=== PATIENT | female | born 1955 | race Caucasian/White ===

== ENCOUNTER 2019-02-13 20:34 | Observation (INO) | payer OTHER ==
[2019-02-13] MEDS ORDERED: Ondansetron 4 MG/2 ML SDV IVPUSH ONE (20:48)
[2019-02-13] MEDS ORDERED: Sodium Chloride 0.9% 10 ML Syringe FLUSH PRN (20:48)
[2019-02-13] MEDS ORDERED: HYDROmorphone 0.5 MG/0.5 ML Syringe IVPUSH ONE ×2 (20:49→22:04)
[2019-02-13] MEDS ORDERED: Pantoprazole 40 MG Vial IVPUSH ONE (20:50)
--- NOTE | 2019-02-13 20:56 | EDM.PDOC ---
ED HPI GENERAL MEDICAL PROBLEM - General Chief Complaint: Chest Pain Stated Complaint: chest pain Time Seen by Provider: 02/13/19 20:41 Source of Information: Reports: Patient History Limitations: Reports: No Limitations - History of Present Illness INITIAL COMMENTS - FREE TEXT/NARRATIVE: The patient presents with lower chest pain and upper abdominal pain. This started about 2 hours ago. She has a history of some issues with her gallbladder and upper abdomen. She was seen at [facility] last year and then transferred to [place]. Further work up looked good and she was discharged. This started after eating a few hours ago. She has no fever, chills, or cough. She has some shortness of breath. She has no nausea or vomiting. She has no dysuria or hematuria. She has no cardiac history. Onset: Gradual Duration: Hour(s): Location: Reports: Chest, Abdomen Quality: Reports: Sharp Severity: Moderate Improves with: Reports: None Worsens with: Reports: None Associated Symptoms: Reports: Chest Pain, Shortness of Breath. Denies: Cough, Fever/Chills, Headaches, Nausea/Vomiting Bilateral Chest Pain Score (Numeric/FACES): 8 - Related Data Allergies Allergy/AdvReac Type Severity Reaction Status Date / Time No Known Allergies Allergy Verified 02/13/19 20:38 Home Meds: Home Meds . [No Known Home Meds] 02/13/19 [History] Past Medical History HEENT History: Reports: Impaired Vision Other HEENT History: Wears glasses Gastrointestinal History: Reports: Diverticulosis Musculoskeletal History: Reports: Fracture Hematologic History: Reports: Other (See Below) Other Hematologic History: Factor - Past Surgical History HEENT Surgical History: Reports: Tonsillectomy GI Surgical History: Reports: Appendectomy Female Surgical History: Reports: Tubal Ligation Social & Family History - Tobacco Use Smoking Status *Q: Never Smoker - Recreational Drug Use Recreational Drug Use: No ED ROS GENERAL - Review of Systems Review Of Systems: See Below Constitutional: Reports: No Symptoms HEENT: Reports: No Symptoms Respiratory: Reports: No Symptoms Cardiovascular: Reports: No Symptoms Endocrine: Reports: No Symptoms GI/Abdominal: Reports: Abdominal Pain. Denies: Diarrhea, Nausea, Vomiting : Reports: No Symptoms Musculoskeletal: Reports: No Symptoms Skin: Reports: No Symptoms Neurological: Reports: No Symptoms ED EXAM, GENERAL - Physical Exam Exam: See Below Exam Limited By: No Limitations General Appearance: Alert, No Apparent Distress Ears: Normal External Exam Nose: Normal Inspection Head: Atraumatic, Normocephalic Neck: Normal Inspection Respiratory/Chest: No Respiratory Distress, Lungs Clear, Normal Breath Sounds Cardiovascular: Regular Rate, Rhythm, No Edema, No Murmur GI/Abdominal: Soft, No Organomegaly, No Mass, Tender (Moderate tenderness to the RUQ) Extremities: Normal Inspection EKG INTERPRETATION EKG Date: 02/13/19 Time: 09:01 Rhythm: NSR Rate (Beats/Min): 72 [place]: Normal P-Wave: Present QRS: Normal ST-T: Normal QT: Normal Course - Vital Signs Last Recorded V/S: Last Vital Signs Temp 97.4 F 02/13/19 20:38 Pulse 83 02/13/19 20:38 Resp 13 02/13/19 20:38 BP 140/78 02/13/19 20:38 Pulse Ox 100 02/13/19 20:38 - Orders/Labs/Meds Orders: Active Orders 24 hr Category Date Time Status Cardiac Monitoring [RC] . DIRECTED Care 02/13/19 20:48 Active EKG Documentation Completion [RC] STAT Care 02/13/19 20:49 Active Influenza Vaccine Charge [RC] .DISCHARGE Care 02/13/19 20:42 Active Peripheral IV Care [RC] . DIRECTED Care 02/13/19 20:49 Active Abdomen Ltd [US] Stat Exams 02/13/19 20:50 Taken Chest 1V Frontal [CR] Stat Exams 02/13/19 20:49 Taken Sodium Chloride 0.9% [Normal Saline] 1,000 ml Med 02/13/19 21:00 Active IV ASDIRECTED Sodium Chloride 0.9% [Saline Flush] Med 02/13/19 20:48 Active 10 ml FLUSH ASDIRECTED PRN ED Antiemetic Medication Reflex [OM.PC] Stat Oth 02/13/19 20:48 Ordered Peripheral IV Insertion Adult [OM.PC] Stat Oth 02/13/19 20:48 Ordered Medication Orders Sodium Chloride (Normal Saline) 1,000 mls @ 125 mls/hr IV ASDIRECTED GONZALO Last Admin: 02/13/19 21:08 Dose: 125 mls/hr Sodium Chloride (Saline Flush) 10 ml FLUSH ASDIRECTED PRN PRN Reason: Keep Vein Open Last Admin: 02/13/19 21:08 Dose: 10 ml Labs: Laboratory Tests 02/13/19 02/13/19 02/13/19 Range/Units 20:45 20:45 20:45 WBC 6.46 (3.98-10.04) K/mm3 RBC 4.11 (3.98-5.22) M/mm3 Hgb 12.8 (11.2-15.7) gm/dl Hct 38.8 (34.1-44.9) % MCV 94.4 (79.4-94.8) fl MCH 31.1 (25.6-32.2) pg MCHC 33.0 (32.2-35.5) g/dl RDW Std Deviation 44.0 (36.4-46.3) fL Plt Count 308 (182-369) K/mm3 MPV 9.3 L (9.4-12.3) fl Neut % (Auto) 53.2 (34.0-71.1) % Lymph % (Auto) 34.2 (19.3-51.7) % [place] % (Auto) 10.8 (4.7-12.5) % Eos % (Auto) 1.4 (0.7-5.8) Baso % (Auto) 0.2 (0.1-1.2) % Neut # (Auto) 3.44 (1.56-6.13) K/mm3 Lymph # (Auto) 2.21 (1.18-3.74) K/mm3 [place] # (Auto) 0.70 H (0.24-0.36) K/mm3 Eos # (Auto) 0.09 (0.04-0.36) K/mm3 Baso # (Auto) 0.01 (0.01-0.08) K/mm3 D-Dimer, Quantitative 0.33 (0.19-0.50) mg/L Sodium 142 (136-145) mEq/L Potassium 4.0 (3.5-5.1) mEq/L Chloride 105 (98-107) mEq/L Carbon Dioxide 30 (21-32) mEq/L Anion Gap 11.0 (5-15) BUN 23 H (7-18) mg/dL Creatinine 1.2 H (0.55-1.02) mg/dL Est Cr Clr Drug Dosing 40.36 mL/min Estimated GFR (MDRD) 45 (>60) mL/min BUN/Creatinine Ratio 19.2 H (14-18) Glucose 109 (80-115) mg/dL Calcium 9.5 (8.5-10.1) mg/dL Total Bilirubin 0.2 (0.2-1.0) mg/dL AST 21 (15-37) U/L ALT 17 (14-59) U/L Alkaline Phosphatase 86 (46-116) U/L Troponin I < 0.017 (0.00-0.056) ng/mL C-Reactive Protein < 0.2 (<1.0) mg/dL Total Protein 7.4 (6.4-8.2) g/dl Albumin 4.0 (3.4-5.0) g/dl Globulin 3.4 gm/dL Albumin/Globulin Ratio 1.2 (1-2) Lipase 305 (73-393) U/L Meds: Medications Generic Name Dose Route Start Last Admin Trade Name Freq PRN Reason Stop Dose Admin Sodium Chloride 1,000 mls @ 125 mls/hr 02/13/19 21:00 02/13/19 21:08 Normal Saline IV 125 mls/hr ASDIRECTED GONZALO Administration Sodium Chloride 10 ml 02/13/19 20:48 02/13/19 21:08 Saline Flush FLUSH 10 ml ASDIRECTED PRN Administration Keep Vein Open Discontinued Medications Generic Name Dose Route Start Last Admin Trade Name Freq PRN Reason Stop Dose Admin Hydromorphone HCl 0.5 mg 02/13/19 20:49 02/13/19 21:10 Dilaudid IVPUSH 02/13/19 20:50 0.5 mg ONETIME ONE Administration Hydromorphone HCl 0.5 mg 02/13/19 22:04 02/13/19 22:19 Dilaudid IVPUSH 02/13/19 22:05 0.5 mg ONETIME ONE Administration Influenza Virus Vaccine 1 each 02/13/19 20:42 Pharmacy To Dose - Influenza Vaccine IM 02/13/19 20:43 ONETIME ONE Influenza Virus Vaccine 180 mcg 02/13/19 20:45 02/13/19 21:13 Fluzone High-Dose 2019-20 Syringe IM 02/13/19 20:46 180 mcg .ONCE ONE Administration Ondansetron HCl 4 mg 02/13/19 20:48 02/13/19 21:09 Zofran IVPUSH 02/13/19 20:49 4 mg ONETIME ONE Administration Pantoprazole Sodium 40 mg 02/13/19 20:50 02/13/19 21:11 Protonix Iv IVPUSH 02/13/19 20:51 40 mg ONETIME ONE Administration - Re-Assessments/Exams Free Text/Narrative Re-Assessment/Exam: 02/13/19 20:55 I ordered an IV NS bolus, EKG, CXR, labs, UA, US of her gallbladder, dilaudid 0.5mg IV, zofran 4mg IV, and protonix 40mg IV. 02/13/19 23:25 Her EKG shows a NSR with no acute changes. Her CXR looks good. Her CBC looks good. Her creatinine is a little elevated at 1.2. Her total bili, AST, ALT and alk phos all were normal. Her troponin was negative. Her lipase was normal. Her US shows a distended gallbladder with stones. There is a non-mobile stone in the neck and the patient does have tenderness over the gallbladder. Nonspecific irregularity to the gallbladder wall could be small polyps or adenomyomatosis. She needed another dose of dilaudid. Her pain is better. I feel she may need to have this gallbladder out soon. I called Dr Rainey our general surgeon functional support analyst and he wanted her observation and he will see her tomorrow to have the gallbladder out sometime tomorrow. I will do some bridging orders. Departure - Departure Time of Disposition: 23:30 Disposition: Refer to Observation Condition: Fair Clinical Impression: Biliary colic Cholelithiasis Qualifiers: Cholelithiasis location: gallbladder Cholecystitis presence: without cholecystitis Biliary obstruction: with biliary obstruction Qualified Code(s): K80.21 - Calculus of gallbladder without cholecystitis with obstruction Referrals: Amanda Jimenes MD [Primary Care Provider] - Forms: ED Department Discharge - My Orders Last 24 Hours: My Active Orders 02/13/19 20:42 Influenza Vaccine Charge [RC] .DISCHARGE 02/13/19 20:48 Cardiac Monitoring [RC] . DIRECTED Sodium Chloride 0.9% [Saline Flush] 10 ml FLUSH ASDIRECTED PRN ED Antiemetic Medication Reflex [OM.PC] Stat Peripheral IV Insertion Adult [OM.PC] Stat 02/13/19 20:49 EKG Documentation Completion [RC] STAT Peripheral IV Care [RC] . DIRECTED Chest 1V Frontal [CR] Stat 02/13/19 20:50 Abdomen Ltd [US] Stat 02/13/19 21:00 Sodium Chloride 0.9% [Normal Saline] 1,000 ml IV ASDIRECTED - Assessment/Plan Last 24 Hours: My Active Orders 02/13/19 20:42 Influenza Vaccine Charge [RC] .DISCHARGE 02/13/19 20:48 Cardiac Monitoring [RC] . DIRECTED Sodium Chloride 0.9% [Saline Flush] 10 ml FLUSH ASDIRECTED PRN ED Antiemetic Medication Reflex [OM.PC] Stat Peripheral IV Insertion Adult [OM.PC] Stat 02/13/19 20:49 EKG Documentation Completion [RC] STAT Peripheral IV Care [RC] . DIRECTED Chest 1V Frontal [CR] Stat 02/13/19 20:50 Abdomen Ltd [US] Stat 02/13/19 21:00 Sodium Chloride 0.9% [Normal Saline] 1,000 ml IV ASDIRECTED
[2019-02-13] MEDS ORDERED: Sodium Chloride 0.9% 1,000 ML IV SCH (21:00)
[2019-02-13] MEDS: Piperacillin/Tazobactam 4.5 GM in Sodium Chloride 0.9% 100 ML IV SCH (23:38)
[2019-02-14] MEDS: HYDROmorphone 0.5 MG/0.5 ML Syringe IVPUSH PRN ×4 (00:25→09:19)
[2019-02-14] MEDS ORDERED: Ondansetron 4 MG/2 ML SDV IVPUSH PRN ×2 (00:40→13:24)
[2019-02-14] MEDS ORDERED: Sodium Chloride 0.9% 1,000 ML IV SCH (00:45)
[2019-02-14] MEDS: Piperacillin/Tazobactam 4.5 GM in Sodium Chloride 0.9% 100 ML IV SCH ×2 (06:30→17:34)
--- NOTE | 2019-02-14 07:35 | PCM.CONS ---
H&P History of Present Illness - General Date of Service: 02/14/19 Admit Problem/Dx: Admission Diagnosis/Problem Admission Diagnosis/Problem Cholelithiasis Source of Information: Patient History Limitations: Reports: No Limitations - History of Present Illness Onset of Symptoms: Reports: Unknown/Unsure Duration of Symptoms: Reports: Hour(s): Location: Reports: Abdomen Quality: Reports: Stabbing Severity: Severe Improves with: Reports: Medication Worsens with: Reports: Eating Associated Symptoms: Reports: No Other Symptoms Bilateral Chest Pain Score (Numeric/FACES): 8 - Related Data Allergies/Adverse Reactions: Allergies Allergy/AdvReac Type Severity Reaction Status Date / Time No Known Allergies Allergy Verified 02/14/19 00:48 Home Medications: Home Meds Zolpidem Tartrate [Ambien] 5 mg PO BEDTIME 02/13/19 [History] Past Medical History HEENT History: Reports: Impaired Vision Other HEENT History: Wears glasses Gastrointestinal History: Reports: Diverticulosis PIANO MOVER History: Reports: Other OB/BYN History: tubes tied Musculoskeletal History: Reports: Arthritis, Fracture Hematologic History: Reports: Other (See Below) Other Hematologic History: Factor 5 Leiden deficiency- reports its only one gene - Past Surgical History HEENT Surgical History: Reports: Tonsillectomy, Other (See Below) Other HEENT Surgeries/Procedures: cosmetic eye surgery GI Surgical History: Reports: Appendectomy Female Surgical History: Reports: Tubal Ligation Social & Family History - Family History Family Medical History: Noncontributory - Tobacco Use Smoking Status *Q: Never Smoker Second Hand Smoke Exposure: No - Caffeine Use Caffeine Use: Reports: Coffee Other Caffeine Use: 2-3cups/day - Recreational Drug Use Recreational Drug Use: No H&P Review of Systems - Review of Systems: Review Of Systems: See Below General: Reports: Malaise HEENT: Reports: No Symptoms Pulmonary: Reports: No Symptoms Cardiovascular: Reports: No Symptoms Gastrointestinal: Reports: Abdominal Pain, Nausea Genitourinary: Reports: No Symptoms Musculoskeletal: Reports: No Symptoms Skin: Reports: No Symptoms Psychiatric: Reports: No Symptoms Neurological: Reports: No Symptoms Hematologic/Lymphatic: Reports: No Symptoms Immunologic: Reports: No Symptoms Exam - Exam Exam: See Below - Vital Signs Vital Signs: Last Vital Signs Temp 36.3 C 02/13/19 20:38 Pulse 83 02/13/19 20:38 Resp 13 02/13/19 20:38 BP 140/78 02/13/19 20:38 Pulse Ox 100 02/13/19 20:38 Weight: 66.27 kg - Exam General: Alert, Oriented HEENT: Conjunctiva Clear Neck: Supple, Trachea Midline Lungs: Clear to Auscultation Cardiovascular: Regular Rate GI/Abdominal Exam: Soft, No Organomegaly (Female) Exam: Deferred Rectal (Female) Exam: Deferred Back Exam: Normal Inspection Extremities: Normal Inspection Peripheral Pulses: 2+: Radial (L), Radial (R) Skin: Warm, Dry Neurological: Normal Gait Neuro Extensive - Mental Status: Alert, Oriented x3 Neuro Extensive - Motor, Sensory, Reflexes: Normal Gait Psychiatric: Alert, Normal Affect, Normal Mood - Patient Data Lab Results Last 24 hrs: Laboratory Results - last 24 hr 02/13/19 02/13/19 02/13/19 Range/Units 20:45 20:45 20:45 WBC 6.46 (3.98-10.04) K/mm3 RBC 4.11 (3.98-5.22) M/mm3 Hgb 12.8 (11.2-15.7) gm/dl Hct 38.8 (34.1-44.9) % MCV 94.4 (79.4-94.8) fl MCH 31.1 (25.6-32.2) pg MCHC 33.0 (32.2-35.5) g/dl RDW Std Deviation 44.0 (36.4-46.3) fL Plt Count 308 (182-369) K/mm3 MPV 9.3 L (9.4-12.3) fl Neut % (Auto) 53.2 (34.0-71.1) % Lymph % (Auto) 34.2 (19.3-51.7) % [place] % (Auto) 10.8 (4.7-12.5) % Eos % (Auto) 1.4 (0.7-5.8) Baso % (Auto) 0.2 (0.1-1.2) % Neut # (Auto) 3.44 (1.56-6.13) K/mm3 Lymph # (Auto) 2.21 (1.18-3.74) K/mm3 [place] # (Auto) 0.70 H (0.24-0.36) K/mm3 Eos # (Auto) 0.09 (0.04-0.36) K/mm3 Baso # (Auto) 0.01 (0.01-0.08) K/mm3 D-Dimer, Quantitative 0.33 (0.19-0.50) mg/L Sodium 142 (136-145) mEq/L Potassium 4.0 (3.5-5.1) mEq/L Chloride 105 (98-107) mEq/L Carbon Dioxide 30 (21-32) mEq/L Anion Gap 11.0 (5-15) BUN 23 H (7-18) mg/dL Creatinine 1.2 H (0.55-1.02) mg/dL Est Cr Clr Drug Dosing 40.36 mL/min Estimated GFR (MDRD) 45 (>60) mL/min BUN/Creatinine Ratio 19.2 H (14-18) Glucose 109 (80-115) mg/dL Calcium 9.5 (8.5-10.1) mg/dL Total Bilirubin 0.2 (0.2-1.0) mg/dL AST 21 (15-37) U/L ALT 17 (14-59) U/L Alkaline Phosphatase 86 (46-116) U/L Troponin I < 0.017 (0.00-0.056) ng/mL C-Reactive Protein < 0.2 (<1.0) mg/dL Total Protein 7.4 (6.4-8.2) g/dl Albumin 4.0 (3.4-5.0) g/dl Globulin 3.4 gm/dL Albumin/Globulin Ratio 1.2 (1-2) Lipase 305 (73-393) U/L Result Diagrams: 02/13/19 20:45 02/13/19 20:45 Consult PN Assessment/Plan Procedures: Procedures POLYSOM 6/> YRS 4/> ARLIN (09/24/14) (1) Cholelithiasis SNOMED Code(s): 988035594 Code(s): K80.20 - CALCULUS OF GALLBLADDER W/O CHOLECYSTITIS W/O OBSTRUCTION Current Visit: Yes Qualifiers: Cholelithiasis location: gallbladder Cholecystitis presence: with cholecystitis Cholecystitis acuity: acute Biliary obstruction: without biliary obstruction Qualified Code(s): K80.00 - Calculus of gallbladder with acute cholecystitis without obstruction Problem List Initiated/Reviewed/Updated: Yes My Orders Last 24 Hours: My Active Orders 02/14/19 00:17 HYDROmorphone [Dilaudid] 0.5 mg IVPUSH Q2H PRN 02/14/19 00:38 Bedrest Bathroom Privileges [RC] ASDIRECTED 02/14/19 00:39 Resuscitation Status Routine 02/14/19 00:40 Ondansetron [Zofran] 4 mg IVPUSH Q6HR PRN 02/14/19 00:45 Sodium Chloride 0.9% [Normal Saline] 1,000 ml IV ASDIRECTED 02/14/19 06:16 Schedule Procedure [COMM] Routine 02/14/19 07:27 Schedule Procedure [COMM] Routine 02/14/19 Breakfast NPO [Nothing Per Oral Diet] [DIET] Plan: laparoscopic cholecystectomy Requesting Provider: royce Alcocer Consult Requested: 02/13/19 Reason for Consult: gallstone disease Patient History Reviewed: Yes Admission H&P Reviewed: Yes Consult Result/Summary:: acute cholecystitis, plan for laparoscopic cholecystectomy Notified Requestor: Yes Time Spent (in minutes): 30
--- NOTE | 2019-02-14 08:19 | CR ---
Chest: Frontal view of the chest was obtained. Comparison: No prior chest x-ray. Heart size and mediastinum are normal. Lungs are clear with no acute parenchymal change. Bony structures are grossly intact. Impression: 1. Nothing acute is seen on frontal chest x-ray. Diagnostic code #1
--- NOTE | 2019-02-14 08:19 | US ---
Limited abdominal ultrasound: Multiple real-time images were obtained of the upper right abdomen. Liver contains no focal abnormality. Multiple gallstones are seen within the gallbladder. Gallbladder wall shows irregular thickening suggesting adenomyomatosis. No pericholecystic fluid is seen. No biliary duct dilatation is seen. Visualized portions of the pancreas show no discrete abnormality. Right kidney shows no hydronephrosis or mass. Right kidney length is 10.6 cm. Impression: 1. Multiple gallstones. Probable adenomyomatosis within the gallbladder wall. No pericholecystic fluid or biliary duct dilatation is seen. 2. Other portions of the right upper quadrant abdominal ultrasound show no discrete abnormality. Diagnostic code #3 I agree with preliminary report from [facility], finalized on 02/14/19, 12:05 AM Central Time
[2019-02-14] MEDS: Heparin Sodium 5,000 Units/ML Vial SUBCUT SCH ×2 (08:58→17:32)
[2019-02-14] MEDS ORDERED: Scopolamine 1.5 MG Transdermal Patch TOP ONE (08:58)
--- NOTE | 2019-02-14 09:03 | PCM.PREANE ---
Preanesthetic Assessment - Anesthesia/Transfusion/Family Hx Anesthesia History: Prior Anesthesia Without Reaction Family History of Anesthesia Reaction: No Transfusion History: No Prior Transfusion(s) - Review of Systems General: Fatigue Pulmonary: No Symptoms Cardiovascular: No Symptoms Gastrointestinal: Abdominal Pain, Nausea (Improved with dilaudid and zofran. ) Neurological: No Symptoms Other: Reports: None (Factor V Leiden) - Physical Assessment NPO Status Date: 02/13/19 NPO Status Time: 18:30 Vital Signs: Last Vital Signs Temp 36.9 C 02/14/19 08:17 Pulse 64 02/14/19 08:17 Resp 20 02/14/19 08:17 BP 117/67 02/14/19 08:17 Pulse Ox 95 02/14/19 08:17 Height: 1.63 m Weight: 66.27 kg ASA Class: 2 Mental Status: Other Dentition: Reports: Normal Dentition Thyro-Mental Finger Breadths: 2 Mouth Opening Finger Breadths: 3 ROM/Head Extension: Full Lungs: Clear to Auscultation, Normal Respiratory Effort Cardiovascular: Regular Rate, Regular Rhythm - Lab Values: Laboratory Last Values WBC 6.46 K/mm3 (3.98-10.04) 02/13/19 20:45 RBC 4.11 M/mm3 (3.98-5.22) 02/13/19 20:45 Hgb 12.8 gm/dl (11.2-15.7) 02/13/19 20:45 Hct 38.8 % (34.1-44.9) 02/13/19 20:45 MCV 94.4 fl (79.4-94.8) 02/13/19 20:45 MCH 31.1 pg (25.6-32.2) 02/13/19 20:45 MCHC 33.0 g/dl (32.2-35.5) 02/13/19 20:45 RDW Std Deviation 44.0 fL (36.4-46.3) 02/13/19 20:45 Plt Count 308 K/mm3 (182-369) 02/13/19 20:45 MPV 9.3 fl (9.4-12.3) L 02/13/19 20:45 Neut % (Auto) 53.2 % (34.0-71.1) 02/13/19 20:45 Lymph % (Auto) 34.2 % (19.3-51.7) 02/13/19 20:45 [place] % (Auto) 10.8 % (4.7-12.5) 02/13/19 20:45 Eos % (Auto) 1.4 (0.7-5.8) 02/13/19 20:45 Baso % (Auto) 0.2 % (0.1-1.2) 02/13/19 20:45 Neut # (Auto) 3.44 K/mm3 (1.56-6.13) 02/13/19 20:45 Lymph # (Auto) 2.21 K/mm3 (1.18-3.74) 02/13/19 20:45 [place] # (Auto) 0.70 K/mm3 (0.24-0.36) H 02/13/19 20:45 Eos # (Auto) 0.09 K/mm3 (0.04-0.36) 02/13/19 20:45 Baso # (Auto) 0.01 K/mm3 (0.01-0.08) 02/13/19 20:45 D-Dimer, Quantitative 0.33 mg/L (0.19-0.50) 02/13/19 20:45 Sodium 142 mEq/L (136-145) 02/13/19 20:45 Potassium 4.0 mEq/L (3.5-5.1) 02/13/19 20:45 Chloride 105 mEq/L (98-107) 02/13/19 20:45 Carbon Dioxide 30 mEq/L (21-32) 02/13/19 20:45 Anion Gap 11.0 (5-15) 02/13/19 20:45 BUN 23 mg/dL (7-18) H 02/13/19 20:45 Creatinine 1.2 mg/dL (0.55-1.02) H 02/13/19 20:45 Est Cr Clr Drug Dosing 40.36 mL/min 02/13/19 20:45 Estimated GFR (MDRD) 45 mL/min (>60) 02/13/19 20:45 BUN/Creatinine Ratio 19.2 (14-18) H 02/13/19 20:45 Glucose 109 mg/dL (80-115) 02/13/19 20:45 Calcium 9.5 mg/dL (8.5-10.1) 02/13/19 20:45 Total Bilirubin 0.2 mg/dL (0.2-1.0) 02/13/19 20:45 AST 21 U/L (15-37) 02/13/19 20:45 ALT 17 U/L (14-59) 02/13/19 20:45 Alkaline Phosphatase 86 U/L (46-116) 02/13/19 20:45 Troponin I < 0.017 ng/mL (0.00-0.056) 02/13/19 20:45 C-Reactive Protein < 0.2 mg/dL (<1.0) 02/13/19 20:45 Total Protein 7.4 g/dl (6.4-8.2) 02/13/19 20:45 Albumin 4.0 g/dl (3.4-5.0) 02/13/19 20:45 Globulin 3.4 gm/dL 02/13/19 20:45 Albumin/Globulin Ratio 1.2 (1-2) 02/13/19 20:45 Lipase 305 U/L (73-393) 02/13/19 20:45 - Allergies Allergies/Adverse Reactions: Allergies Allergy/AdvReac Type Severity Reaction Status Date / Time No Known Allergies Allergy Verified 02/14/19 00:48 - Anesthesia Plan Pre-Op Medication Ordered: Other (Heparin per Dr. Rainey, Scopalamine Patch. ) - Acknowledgements Anesthesia Type Planned: General Anesthesia Pt an Appropriate Candidate for the Planned Anesthesia: Yes Alternatives and Risks of Anesthesia Discussed w Pt/Guardian: Yes Pt/Guardian Understands and Agrees with Anesthesia Plan: Yes PreAnesthesia Questionnaire HEENT History: Reports: Impaired Vision Other HEENT History: Wears glasses Gastrointestinal History: Reports: Diverticulosis LOGISTICS MANAGER History: Reports: Other OB/BYN History: tubes tied Musculoskeletal History: Reports: Arthritis, Fracture Hematologic History: Reports: Other (See Below) Other Hematologic History: Factor 5 Leiden deficiency- reports its only one gene - Past Surgical History HEENT Surgical History: Reports: Tonsillectomy, Other (See Below) Other HEENT Surgeries/Procedures: cosmetic eye surgery GI Surgical History: Reports: Appendectomy Female Surgical History: Reports: Tubal Ligation - SUBSTANCE USE Smoking Status *Q: Never Smoker Second Hand Smoke Exposure: No Recreational Drug Use History: No - HOME MEDS Home Medications: Home Meds Zolpidem Tartrate [Ambien] 5 mg PO BEDTIME 02/13/19 [History] - CURRENT (IN HOUSE) MEDS Current Meds: Current Medications Heparin Sodium (Porcine) (Heparin Sodium) 5,000 units SUBCUT Q8H [facility] Last Admin: 02/14/19 08:58 Dose: 5,000 units Hydromorphone HCl (Dilaudid) 0.5 mg IVPUSH Q2H PRN PRN Reason: Pain Last Admin: 02/14/19 06:25 Dose: 0.5 mg Piperacillin Sod/Tazobactam (Sod 4.5 gm/ Sodium Chloride) 100 mls @ 25 mls/hr IV Q8H GONZALO Last Admin: 02/14/19 06:30 Dose: 25 mls/hr Sodium Chloride (Normal Saline) 1,000 mls @ 100 mls/hr IV ASDIRECTED GONZALO Last Admin: 02/14/19 06:26 Dose: 100 mls/hr Ondansetron HCl (Zofran) 4 mg IVPUSH Q6HR PRN PRN Reason: Nausea Last Admin: 02/14/19 06:25 Dose: 4 mg Scopolamine (Transderm-Scop) 1.5 mg TOP ONETIME ONE Stop: 02/14/19 08:59 Sodium Chloride (Saline Flush) 10 ml FLUSH ASDIRECTED PRN PRN Reason: Keep Vein Open Last Admin: 02/13/19 21:08 Dose: 10 ml Discontinued Medications Hydromorphone HCl (Dilaudid) 0.5 mg IVPUSH ONETIME ONE Stop: 02/13/19 20:50 Last Admin: 02/13/19 21:10 Dose: 0.5 mg Hydromorphone HCl (Dilaudid) 0.5 mg IVPUSH ONETIME ONE Stop: 02/13/19 22:05 Last Admin: 02/13/19 22:19 Dose: 0.5 mg Sodium Chloride (Normal Saline) 1,000 mls @ 125 mls/hr IV ASDIRECTED [facility] Last Infusion: 02/14/19 00:05 Dose: 100 mls/hr Influenza Virus Vaccine (Pharmacy To Dose - Influenza Vaccine) 1 each IM ONETIME ONE Stop: 02/13/19 20:43 Influenza Virus Vaccine (Fluzone High-Dose Syringe) 180 mcg IM .ONCE ONE Stop: 02/13/19 20:46 Last Admin: 02/13/19 21:13 Dose: 180 mcg Ondansetron HCl (Zofran) 4 mg IVPUSH ONETIME ONE Stop: 02/13/19 20:49 Last Admin: 02/13/19 21:09 Dose: 4 mg Pantoprazole Sodium (Protonix Iv) 40 mg IVPUSH ONETIME ONE Stop: 02/13/19 20:51 Last Admin: 02/13/19 21:11 Dose: 40 mg
[2019-02-14] MEDS ORDERED: Ondansetron 4 MG/2 ML SDV ONE (12:27)
[2019-02-14] MEDS ORDERED: Rocuronium 50 MG/5 ML Vial ONE (12:27)
[2019-02-14] MEDS ORDERED: fentaNYL 250 MCG/5 ML SDV ONE (12:28)
[2019-02-14] MEDS ORDERED: Lidocaine 1% 4 ML ONE (12:28)
[2019-02-14] MEDS ORDERED: Midazolam 1 MG/ML 2 ML SDV ONE (12:28)
[2019-02-14] MEDS ORDERED: Propofol 200 MG/20 ML SDV ONE (12:28)
[2019-02-14] MEDS ORDERED: Bupivacaine 0.5%/EPINEPHrine 1:200,000 50 ML MDV ONE (12:43)
[2019-02-14] MEDS ORDERED: Lactated Ringers 1,000 ML ONE ×2 (12:55→14:25)
[2019-02-14] MEDS ORDERED: fentaNYL 100 MCG/2 ML SDV IVPUSH PRN (13:24)
[2019-02-14] MEDS ORDERED: HYDROmorphone 0.5 MG/0.5 ML Syringe IVPUSH PRN (13:24)
[2019-02-14] MEDS ORDERED: ePHEDrine/Normal Saline 25 MG/5 ML Syringe ONE (13:26)
[2019-02-14] MEDS ORDERED: Dexamethasone 4 MG/ML 5 ML MDV ONE (13:36)
[2019-02-14] MEDS ORDERED: fentaNYL 100 MCG/2 ML SDV ONE (14:11)
[2019-02-14] MEDS ORDERED: Neostigmine Methylsulfate 1 MG/ML 5 ML Syringe ONE (14:31)
--- NOTE | 2019-02-14 15:15 | PCM.PRNOTE ---
- Free Text/Narrative Note: Operative Report Operation: laparoscopic cholecystectomy Date: 02/14/2019 Attending Surgeon: Jacob Rainey MD Indication for Surgery:acute cholecystitis Preoperative antibiotics: zosyn VTE prophylaxis: Heparin 5000 u SC, SCDs Estimated Blood Loss: 100 cc Operation: laparoscopic lysis of adhesions, cholecystectomy Findings: extensive perihepatic gossamer adhesions extending to the dome of the liver. The gallbladder was chronically inflamed and edematous. The duodenum was adherent to the gallbladder. Gallbladder had large cystic duct, and contained clear viscous, non-bilious fluid and large whitish gallstones. Dissection was difficult. Detailed Report: The patient underwent general endotracheal anesthesia after being placed supine on the operating table and initial timeout. The abdomen was prepped and draped in sterile fashion. A pre-incision timeout was performed confirming the patient s identity and the operation to be performed. A Veress needle was inserted into the abdominal cavity below the left costal margin along the mid-clavicular line. The abdomen was insufflated with CO2 to 15 mm Hg. Gas was aspirated below the umbilicus with a syringe in order to ensure safe placement of a 5 mm bladed laparoscopic port. The 5mm 30 degree laparoscope was then inserted and viscera inspected. The gallbladder appeared was not visualized initially due to extensive surrounding adhesions. Two additional 5 mm ports were placed along the right subcostal region under direct vision with the laparoscope, and a 12 mm port was placed at the subxiphoid region. Adhesions were lysed using the laparoscopic Ligasure. The duodenum was adherent to the gallbladder, and careful dissection with minimal use of energy freed the gallbladder. The gallbladder was grasped at the fundus with a locking grasper and retracted anteriorly and superiorly, exposing the infundibulum. This was grasped with the surgeons left hand grasper and retracted laterally. The hook electrode was used to open the overlying peritoneum, and this plane of dissection was developed along the edges of the gallbladder at its interface with the liver bed. There was a prominent node of Calot. A combination of hook electrode, blunt dissection with the suction miller first and laparoscopic Kittner dissector, and the [place] grasper were used to carefully expose and skeletonize the cystic duct and artery. The infundibulum was lacerated during retraction, and spillage of clear viscous fluid was noted. A critical view of safety was eventually obtained. Hemolock clips were then placed on both structures in preparation for division. Three large (purple) Hemolock clips were placed on the cystic duct stay side. The duct and artery were transected with laparoscopic scissors. The hook was then used to dissect the gallbladder free from its attachment to the liver. A few large stones spilled during dissection. The specimen and stones were then placed in an Endocatch bag and removed through the subxiphoid port. The liver bed was inspected and appeared hemostatic after thorough irrigation and suctioning. The larger subxiphoid port was closed at the level of the fascia with vicryl suture using the PMI laparoscopic suture passer. Pneumoperitoneum was then released. All skin incisions were then closed with placement of subcuticular vicryl suture and dressed with dermabond. A total of 10 cc 1% lidocaine with epinephrine was used for local anesthesia at the incision sites. The patient tolerated the operation well, was extubated in the operating room and transferred to the PACU for routine post-anesthesia care. Jacob Rainey MD General Surgery
[2019-02-14] MEDS ORDERED: Lactated Ringers 1,000 ML IV SCH (15:30)
--- NOTE | 2019-02-14 15:30 | PCM.POSTAN ---
POST ANESTHESIA ASSESSMENT - MENTAL STATUS Mental Status: Somnolent - VITAL SIGNS Vital Signs: Last Vital Signs Temp 98.4 F 02/14/19 08:17 Pulse 64 02/14/19 08:17 Resp 20 02/14/19 08:17 BP 117/67 02/14/19 08:17 Pulse Ox 95 02/14/19 08:17 98% 86 8 97.6 136/60 - RESPIRATORY Respiratory Status: Respiratory Rate WNL, Airway Patent, O2 Saturation Stable, Supplemental Oxygen - CARDIOVASCULAR CV Status: Pulse Rate WNL, Blood Pressure Stable - GASTROINTESTINAL GI Status: No Symptoms - PAIN Pain Score: 0 - POST OP HYDRATION Hydration Status: Adequate & Stable
--- NOTE | 2019-02-14 17:15 | PCM48HPAN ---
Post Anesthesia Note - EVALUATION WITHIN 48HRS OF ANESTHETIC Vital Signs in Normal Range: Yes Patient Participated in Evaluation: Yes Respiratory Function Stable: Yes Airway Patent: Yes Cardiovascular Function Stable: Yes Hydration Status Stable: Yes Pain Control Satisfactory: Yes Nausea and Vomiting Control Satisfactory: Yes Mental Status Recovered: Yes Vital Signs: Last Vital Signs Temp 37.1 C 02/14/19 16:30 Pulse 64 02/14/19 08:17 Resp 14 02/14/19 16:30 BP 118/63 02/14/19 16:30 Pulse Ox 95 02/14/19 16:30
[2019-02-14] MEDS: Acetaminophen 325 MG Tab PO SCH ×3 (17:32→22:32)
[2019-02-14] MEDS: oxyCODONE 5 MG Tab PO PRN (22:15)
[2019-02-15] MEDS: Heparin Sodium 5,000 Units/ML Vial SUBCUT SCH ×2 (02:15→09:42)
[2019-02-15] MEDS: oxyCODONE 5 MG Tab PO PRN ×2 (02:15→06:37)
[2019-02-15] MEDS: Acetaminophen 325 MG Tab PO SCH (06:38)
--- NOTE | 2019-02-15 09:50 | PCM.DCSUM1 ---
Discharge Summary - Hospital Course Free Text/Narrative:: Mrs. Horton was admitted the evening of 02/13 with abdominal pain and found to have a gallstone impacted at the gallbladder neck on ultrasound. She was taken to the operating room the following day for laparoscopic cholecystectomy. There was significant chronic inflammation of the gallbladder. She tolerated the operation well and was kept overnight for observation. She felt better, and pain was controlled with oral analgesics. She tolerated breakfast the morning of post-op day 1 and was deemed fit for discharge to home. Diagnosis: Stroke: No - Discharge Data Discharge Date: 02/15/19 Discharge Disposition: Home, Self-Care 01 Condition: Good - Referral to Home Health Primary Care Physician: Amanda Jimenes MD - Discharge Diagnosis/Problem(s) (1) Cholelithiasis SNOMED Code(s): 562175800 ICD Code: K80.20 - CALCULUS OF GALLBLADDER W/O CHOLECYSTITIS W/O OBSTRUCTION Status: Acute Current Visit: Yes Qualifiers: Cholelithiasis location: gallbladder Cholecystitis presence: with cholecystitis Cholecystitis acuity: acute and chronic Biliary obstruction: without biliary obstruction Qualified Code(s): K80.12 - Calculus of gallbladder with acute and chronic cholecystitis without obstruction - Patient Summary/Data Operative Procedure(s) Performed: Laparoscopic adhesiolysis and cholecystectomy Complications: none Hospital Course: uneventful. See above summary. - Patient Instructions Diet: Usual Diet as Tolerated - Discharge Plan *PRESCRIPTION DRUG MONITORING PROGRAM REVIEWED*: Yes *COPY OF PRESCRIPTION DRUG MONITORING REPORT IN PATIENT FELISHA: Not Applicable Prescriptions/Med Rec: oxyCODONE 5 mg PO Q4H PRN #30 tab PRN Reason: Pain Home Medications: Home Meds Zolpidem Tartrate [Ambien] 5 mg PO BEDTIME 02/13/19 [History] oxyCODONE 5 mg PO Q4H PRN #30 tab 02/15/19 [Rx] Forms: ED Department Discharge Referrals: Amanda Jimenes MD [Primary Care Provider] - Jacob Rainey MD [Physician] - - Discharge Summary/Plan Comment DC Time >30 min.: Yes Discharge Summary/Plan Comment: follow up in clinic within two weeks for post-operative evaluation and review of pathology. - Patient Data Vitals - Most Recent: Last Vital Signs Temp 36.7 C 02/15/19 06:09 Pulse 68 02/15/19 06:09 Resp 18 02/15/19 06:09 BP 125/81 02/15/19 06:09 Pulse Ox 98 02/15/19 06:09 Weight - Most Recent: 67.812 kg I&O - Last 24 hours: Intake & Output 02/14/19 02/15/19 02/15/19 22:59 06:59 14:59 Intake Total 1330 1500 Output Total 900 2200 Balance 430 -700 Med Orders - Current: Current Medications Acetaminophen (Tylenol) 975 mg PO Q8H [facility] Last Admin: 02/15/19 06:38 Dose: 975 mg Heparin Sodium (Porcine) (Heparin Sodium) 5,000 units SUBCUT Q8H [facility] Last Admin: 02/15/19 09:42 Dose: 5,000 units Hydromorphone HCl (Dilaudid) 0.5 mg IVPUSH Q2H PRN PRN Reason: Pain Last Admin: 02/14/19 09:19 Dose: 0.5 mg Lactated Ringer's (Ringers, Lactated) 1,000 mls @ 100 mls/hr IV ASDIRECTED [facility] Last Admin: 02/14/19 22:15 Dose: 100 mls/hr Miscellaneous Information (Remove Patch) 1 ea TRDERM Q72H [facility] Stop: 02/17/19 09:31 Ondansetron HCl (Zofran) 4 mg IVPUSH Q6HR PRN PRN Reason: Nausea Last Admin: 02/14/19 06:25 Dose: 4 mg Oxycodone HCl (Oxycodone) 5 mg PO Q4H PRN PRN Reason: Pain (moderate 4-6) Last Admin: 02/15/19 06:37 Dose: 5 mg Sodium Chloride (Saline Flush) 10 ml FLUSH ASDIRECTED PRN PRN Reason: Keep Vein Open Last Admin: 02/13/19 21:08 Dose: 10 ml Discontinued Medications Bupivacaine HCl/Epinephrine Bitart (Marcaine 0.5%/Epinephrine 1:200,000) Confirm Administered Dose 50 ml .ROUTE .STK-MED ONE Stop: 02/14/19 12:44 Last Admin: 02/14/19 13:41 Dose: 10 ml Dexamethasone (Dexamethasone) Confirm Administered Dose 20 mg .ROUTE .STK-MED ONE Stop: 02/14/19 13:37 Ephedrine Sulfate (Ephedrine In Ns) Confirm Administered Dose 25 mg .ROUTE .STK- MED ONE Stop: 02/14/19 13:27 Fentanyl (Sublimaze) Confirm Administered Dose 250 mcg .ROUTE .STK-MED ONE Stop: 02/14/19 12:29 Fentanyl (Sublimaze) 50 mcg IVPUSH Q5M PRN PRN Reason: Pain Fentanyl (Sublimaze) Confirm Administered Dose 100 mcg .ROUTE .STK-MED ONE Stop: 02/14/19 14:12 Glycopyrrolate () Confirm Administered Dose 1 mg .ROUTE .STK-MED ONE Stop: 02/14/19 14:32 Hydromorphone HCl (Dilaudid) 0.5 mg IVPUSH ONETIME ONE Stop: 02/13/19 20:50 Last Admin: 02/13/19 21:10 Dose: 0.5 mg Hydromorphone HCl (Dilaudid) 0.5 mg IVPUSH ONETIME ONE Stop: 02/13/19 22:05 Last Admin: 02/13/19 22:19 Dose: 0.5 mg Hydromorphone HCl (Dilaudid) 0.5 mg IVPUSH Q10M PRN PRN Reason: Pain (severe 7-10) Stop: 02/14/19 18:00 Sodium Chloride (Normal Saline) 1,000 mls @ 125 mls/hr IV ASDIRECTED [facility] Last Infusion: 02/14/19 00:05 Dose: 100 mls/hr Piperacillin Sod/Tazobactam (Sod 4.5 gm/ Sodium Chloride) 100 mls @ 25 mls/hr IV Q8H [facility] Last Admin: 02/14/19 17:34 Dose: 25 mls/hr Sodium Chloride (Normal Saline) 1,000 mls @ 100 mls/hr IV ASDIRECTED [facility] Last Admin: 02/14/19 06:26 Dose: 100 mls/hr Lidocaine HCl (Xylocaine-Mpf 1%) Confirm Administered Dose 4 mls @ as directed .ROUTE .STK-MED ONE Stop: 02/14/19 12:29 Lactated Ringer's (Ringers, Lactated) Confirm Administered Dose 1,000 mls @ as directed .ROUTE .STK-MED ONE Stop: 02/14/19 12:56 Lactated Ringer's (Ringers, Lactated) Confirm Administered Dose 1,000 mls @ as directed .ROUTE .STK-MED ONE Stop: 02/14/19 14:26 Influenza Virus Vaccine (Pharmacy To Dose - Influenza Vaccine) 1 each IM ONETIME ONE Stop: 02/13/19 20:43 Influenza Virus Vaccine (Fluzone High-Dose 2018- Syringe) 180 mcg IM .ONCE ONE Stop: 02/13/19 20:46 Last Admin: 02/13/19 21:13 Dose: 180 mcg Midazolam HCl (Versed 1 Mg/Ml) Confirm Administered Dose 2 mg .ROUTE .STK-MED ONE Stop: 02/14/19 12:29 Neostigmine Methylsulfate (Neostigmine) Confirm Administered Dose 5 mg .ROUTE .STK-MED ONE Stop: 02/14/19 14:32 Ondansetron HCl (Zofran) 4 mg IVPUSH ONETIME ONE Stop: 02/13/19 20:49 Last Admin: 02/13/19 21:09 Dose: 4 mg Ondansetron HCl (Zofran) Confirm Administered Dose 4 mg .ROUTE .STK-MED ONE Stop: 02/14/19 12:28 Ondansetron HCl (Zofran) 4 mg IVPUSH ONETIME PRN PRN Reason: Nausea/Vomiting Stop: 02/14/19 18:00 Pantoprazole Sodium (Protonix Iv) 40 mg IVPUSH ONETIME ONE Stop: 02/13/19 20:51 Last Admin: 02/13/19 21:11 Dose: 40 mg Propofol (Diprivan 20 Ml) Confirm Administered Dose 200 mg .ROUTE .STK-MED ONE Stop: 02/14/19 12:29 Rocuronium [place] (Zemuron) Confirm Administered Dose 50 mg .ROUTE .STK-MED ONE Stop: 02/14/19 12:28 Scopolamine (Transderm-Scop) 1.5 mg TOP ONETIME ONE Stop: 02/14/19 08:59 Last Admin: 02/14/19 09:19 Dose: 1.5 mg
[2019-02-15 09:55] VITALS: BP 116/61; PULSE 61
== END 2019-02-15 10:59 | disposition home or self-care (01) ==
LOC: JD.ED 20:34 → JD.MS 23:33
PROVIDERS: ADMIT Surgery; ATTEND Surgery
DX: K80.12 Calculus of gallbladder with acute and chronic cholecystitis without obstruction (principal); M19.90 Unspecified osteoarthritis, unspecified site
CPT/HCPCS: 36415; 47562; 71045; 76705; 80053; 83690; 84484; 85025; 85379; 86140; 90471; 90662; 93005; 96361; 96374; 96375; 96376; 99285; A9270; C9113; J1100; J1170; J1644; J2001; J2250; J2405; J2543; J2704; J2710; J3010; J3490; J7030; J7040; J7050; J7120; 00790; 93010; 96365; 96366; 96372; G0008; G0378